=== PATIENT | female | born 1980 | race Two or more races ===

== ENCOUNTER 2017-10-05 17:38 | Emergency (ER) | payer MEDICAID ==
[~2017-10-05] VITALS: Ht 162.6 cm; Wt 70.3 kg
--- NOTE | 2017-10-05 18:13 | Emergency Room Report ---
History of Present Illness General Chief Complaint: Lower Extremity Injury Source: Patient Present Illness HPI 36-year-old female patient presents to ER complaining of left toe pain. 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 Reports toenail was ripped off. Reports unable to ambulate secondary to pain. Reports bleeding from site of injury. Reports "cuts" on other part of foot. Denies other acute symptoms at this time. Allergies: Coded Allergies: No Known Allergies (Unverified , 10/05/17) Patient History Past Medical History: see triage record Reviewed Nursing Documentation: PMH: Agreed; PSxH: Agreed Review of Systems All Other Systems: negative except mentioned in HPI Physical Exam Vital Signs Date Time Temp Pulse Resp B/P (MAP) Pulse Ox O2 Delivery O2 Flow Rate FiO2 10/05/17 17:54 97.9 81 20 123/79 99 Room Air 97.9 Sp02 EP Interpretation: reviewed, normal General Appearance: well appearing, no apparent distress, alert, GCS 15, non- toxic Head: normocephalic, atraumatic Eyes: bilateral eye normal inspection, bilateral eye PERRL ENT: hearing grossly normal, normal pharynx, no angioedema, normal voice, uvula midline, moist mucus membranes Respiratory: lungs clear, normal breath sounds, no rhonchi, no respiratory distress, no accessory muscle use, no wheezing, speaking full sentences Cardiovascular #1: regular rate, rhythm, no edema Cardiovascular #2: 2+ dorsalis pedis (R), 2+ dorsalis pedis (L) Musculoskeletal: back normal, digits/nails normal, normal range of motion, swelling, other - left big toenail avulsed, tender - left big toe Neurologic: alert, oriented x3, responsive, motor strength/tone normal, sensory intact Psychiatric: mood/affect normal Skin: abrasions - abrasion on left midfoot on palmar side, no active bleeding, dried blood present Medical Decision Making PA Attestation Dr. Singh is my supervising Physician whom patient management has been discussed with. Diagnostic Impression: Primary Impression: Nail avulsion of toe Additional Impression: Abrasion foot/toe ER Course Pt. presents to the ED c/o left big toe pain and nail avulsion. Ddx considered but are not limited to fracture, sprain, strain, contusion, dislocation, nail avulsion. No erythema, no warmth to touch, no fever, nontoxic appearing, low suspicion for septic joint. Vital signs: are WNL, pt. is afebrile Ordered X-ray and pain medication. ER COURSE Provided with pain medication. Left big toenail avulsed, abrasion on dorsum of foot, foot cleaned with saline and Betadine. An X-ray of the left foot was ordered, results show no fracture, per the preliminary reading. Consult with plastic battery assembler Dr. Rich, see his note. Performed toenail removal. No nailbed laceration. Dr. Rich cleaned and dressed wound. SEMAJ wrap applied to foot. Keep foot clean and dry. Patient reports pain with ambulation, Crutches provided. Patient instructed on RICE method: rest, ice, compression, elevation. Patient instructed to WBAT. Followup with primary care provider. Discuss referral to ortho/pain management/ PT as needed. Discuss further imaging with MRI/CT as needed. Follow up with Dr. Rich in 2 weeks. Call to schedule appointment. Consult with Dr. Rich, will provide abx to patient to prevent infection. DISCHARGE: -Rx provided for Tylenol for pain. Patient is , instructed not to take any medications other than Tylenol. -Rx provided for Keflex At this time pt. is stable for d/c to home. Patient is resting comfortably, in no acute distress, nontoxic appearing, talking without difficulty. Will provide printed patient care instructions, and any necessary prescriptions. Patient instructed to follow with primary care provider in 3 - 5 days and to request further orthopedic follow-up. Care plan and follow up instructions have been discussed with the patient prior to discharge. Take medications as directed. Patient questions asked and answered. Patient reports understanding and agreement to treatment plan. ER precautions given, patient instructed to return to ER immediately for any new or worsening of symptoms. - Please note that this Emergency Department Report was dictated using [employer] facility manager technology software, occasionally this can lead to erroneous entry secondary to interpretation by the dictation equipment. Other X-Ray Diagnostic Results Other X-Ray Diagnostic Results : X-Ray ordered: left foot # of Views/Limited Vs Complete: 3 View Indication: Pain EP Interpretation: Yes PA Xray: Interpretation reviewed, by supervising MD, and agrees with findings. Interpretation: no dislocation, no soft tissue swelling, no fractures Impression: No acute disease CHRISTINA Arora Text Emre Karimi PA-C Last Vital Signs Date Time Temp Pulse Resp B/P (MAP) Pulse Ox O2 Delivery O2 Flow Rate FiO2 10/05/17 17:54 97.9 81 20 123/79 99 Room Air 97.9 Disposition: HOME, SELF-CARE Condition: Stable Scripts Acetaminophen* (TYLENOL EXTRA STRENGTH*) 500 Mg Tablet 500 MG ORAL Q8H PRN for Prn Headache/Temp > 101, #30 TAB 0 Refills Prov: Den Karimi 10/05/17 Cephalexin* (KEFLEX*) 500 Mg Capsule 500 MG ORAL EVERY 12 HOURS, #14 CAP 0 Refills Prov: Den Karimi 10/05/17 Patient Instructions: Abrasion, [id number], Nail Avulsion Additional Instructions: Patient instructed to follow-up with primary care provider in 1-3 days for wound check. Take medications as directed. Keep wound clean and dry. Patient questions asked and answered. ER precautions given, patient instructed to return to ER immediately for any new or worsening of symptoms. Den Karimi Oct 05, 2017 18:13
[2017-10-05] MEDS ORDERED: Morphine Sulfate 4mg/ml Inj IM ONE (18:15)
[2017-10-05] MEDS ORDERED: Ketorolac 30mg Inj IM ONE (18:15)
[2017-10-05] MEDS ORDERED: Lidocaine 1% MPF 10mg/ml 5ml INJ ONE (19:15)
[2017-10-05] MEDS ORDERED: TYLENOL EXTRA500 MG ORAL (19:19)
[2017-10-05] MEDS ORDERED: CEPHALEXIN500 MG ORAL (19:19)
[2017-10-05] MEDS ORDERED: Bacitracin Oint UD TOPIC ONE (19:30)
[2017-10-05 19:35] VITALS: BP 122/78
--- NOTE | 2017-10-06 00:45 | Consultation ---
DATE OF CONSULTATION: 10/05/2017 HISTORY OF PRESENT ILLNESS: The patient states she was walking out of her home and some plywood slipped out of the backside of her 's truck and fell onto her left foot. She started developing severe pain and states that she felt like the nail was about to come off. She sustained some abrasions on the dorsal foot and she was unable to walk. She came to the emergency room for care. Denied any loss of consciousness or hitting her head. She states she is unable to walk on the left foot at this time. The patient has been sitting at this time. PAST MEDICAL HISTORY: Unknown. PAST SURGICAL HISTORY: Unknown. ALLERGIES: No known drug allergies. FAMILY HISTORY: Noncontributory. REVIEW OF SYSTEMS: Pain to the left foot. Possible laceration to the left hallux. Swelling of the left foot. PHYSICAL EXAMINATION: AAO x3. Mild acute distress to the left foot. Pulses are intact bilaterally. Capillary refill time is less than 3 seconds. There is a left hallux contusion with surrounding erythema, which is blanchable and no warmth exhibited with a nail plate that is 90% removed from the nail bed. There is no underlying lacerations noted. There are small abrasions to the dorsal left third, fourth, and dorsal midfoot area without any active signs of infection. There are no open fractures, which are appreciated. The patient's strength exam is limited due to pain. Severe pain noted to the dorsum of the second metatarsal and third metatarsal neck as well as the distal phalanx. On exam, there are no fractures or dislocations. There are no lacerations or any overt trauma to the left hallux. This can be appreciated on x-ray. There is some soft tissue edema to the left hallux. Epicritic sensation intact to the left foot. ASSESSMENT: 1. Contusion, left foot. 2. Trauma to the left hallux with avulsion of the left hallux nail plate. 3. Contusion of the left hallux, pain to the left foot. PLAN: Washed out the wounds with normal saline and applied Betadine to the left hallux, anesthetized the left great toe with 5 mL of 1% lidocaine plain. I then removed the left hallux nail plate with pickups and the underlying nail bed was intact without any lacerations. I then applied normal saline and Betadine over this area, covered with Xeroform and covered all the other wounds with Xeroform and 4 x 4, Kerlix, and tape. I gave her surgical shoes and some crutches. Discussed to change the dressing every three days with bacitracin and Xeroform and gauze. She will follow up with me in my clinic in two weeks. ER team placed her on one week of oral antibiotics and gave her some Tylenol No. 3 for pain medication. She will be partial protective weightbearing, left heel using crutches and a surgical shoe for up to four weeks. Ed Rich M.D. DR: Eloisa JOB#: [id number] CC:
--- NOTE | 2017-10-06 11:49 | Diagnostic Imaging Report ---
Indication: Left foot pain Technique: 3 views left foot Comparison: none Findings: No acute fractures. No dislocations. The joint spaces are preserved. Impression: Negative
== END 2017-10-05 19:35 | disposition home or self-care (01) ==
LOC: EMR 19:17
DX: S91.202A Unspecified open wound of left great toe with damage to nail, initial encounter (principal); S90.812A Abrasion, left foot, initial encounter; W22.8XXA Striking against or struck by other objects, initial encounter; Y92.008 Other place in unspecified non-institutional (private) residence as the place of occurrence of the external cause
CPT/HCPCS: 11730; 96372; 99284